=== PATIENT | female | born 1980 | race Caucasian/White ===

== ENCOUNTER 2019-10-27 00:06 | Day surgery (SDC) | payer OTHER, SELFPAY ==
[2019-10-19 12:20] VITALS: BMI 19.9
--- NOTE | 2019-10-26 11:35 | WPDANESEPPF ---
Anes - Initial Pre Proc Eval Procedure: Operation Date: 10/27/19 07:30 Proposed Procedures p Bilateral Augmentation Mammoplasty - Rayshawn Magana MD Date/Time: 10/26/19 11:35 Surgeon: Rayshawn Magana MD Pre Op Diagnosis: Micromastia Patient Data Age: 39 Gender: F Height: 5 ft 9 in Weight: 61.24 kg Allergies Allergy/AdvReac Type Severity Reaction Status Date / Time [id number] Antimigraine AdvReac Unknown INSTRUCTED Verified 10/27/19 06:29 Agents TO AVOID D/T HEMIPLEGIC MIGRAINES BETA BLOCKERS AdvReac INSTRUCTED Uncoded 10/27/19 06:29 TO AVOID D/T HEMIPLEGIC MIGRAINES Home Medications Medication Instructions Recorded Confirmed Type levothyroxine 75 mcg tablet 75 mcg PO DAILY 08/10/19 10/27/19 History carisoprodol 350 mg tablet 350 mg PO TID PRN #21 tablet 10/04/19 10/27/19 Rx docusate sodium 100 mg capsule 100 mg PO DAILY #14 cap 10/04/19 10/27/19 Rx ondansetron HCl 4 mg tablet 4 mg PO Q8H #28 tablet 10/04/19 10/27/19 Rx oxycodone-acetaminophen 5 mg-325 1 tablet PO Q6H PRN #15 tablet 10/04/19 10/27/19 Rx mg tablet Patient hx anesthesia problems: none Family hx anesthesia problems: none PMFSH Past Medical History Medical History (Updated 10/26/19 @ 11:35 by Morgan Esposito MD) GERD (gastroesophageal reflux disease) Hemiplegic migraine Hypothyroidism Surgical History Surgical History History of D&C History of wisdom tooth extraction Social History Social History Smoking status: Never smoker Alcohol intake: current Anes - Eval Final PreProcedure Day of Procedure 10/26/19 11:35 Patient weight: normal Heart: regular rate and rhythm Lungs: clear to auscultation Airway: Mallampati scale class II Neurological: alert and oriented Last oral intake: >/= 8 hours ASA classification: II Emergent: no Anesthetic plan: proceed Anesthesia type and monitoring: general LMA and standard monitoring Informed Consent: The patient's anesthetic plan and its attendant risks and benefits were discussed with the patient/family/POA. Questions were solicited and answers provided to the satisfaction of the patient/family/POA.
[2019-10-27] VITALS (7 sets, daily range): BP systolic 96–107; BP diastolic 53–73; PULSE 49–81; RESP 12–16; TEMP 36.4–36.8; O2SAT 100
[2019-10-27] MEDS: LACTATED RINGERS 1,000 ML 30 ML IV CONT ×2 (06:25→08:44)
--- NOTE | 2019-10-27 06:46 | WPDHPUPDATE1 ---
History and Physical Update Update Date/Time: 10/27/19 06:46 History and Physical has been reviewed, including an updated exam of the patient. There are NO changes in the patient's condition. Risks, benefits, and alternatives have been discussed and questions answered. Patient agrees to proceed with procedure.
[2019-10-27] MEDS: ceFAZolin 2 GM/D5W 50 ML 2 GM/50 ML BAG IVPB (07:37)
[2019-10-27] MEDS: LIDO 1%/EPINEPHRINE 1:100,000 20 ML VIAL 30 ML INFILTRATE (08:01)
--- NOTE | 2019-10-27 08:39 | SUR.OPER ---
Ebl=5ml
--- NOTE | 2019-10-27 08:48 | P.OP_ITS ---
Procedure Note - Detailed Date of procedure: 10/27/19 Pre-op diagnosis: Micromastia Post-op diagnosis: same Procedure performed: Bilateral breast augmentation Description of procedure: Breast Augmentation risks benefits discussed including risks of infection, bleeding, scarring, hematoma, seroma, wound breakdown. Implant malposition (discussed nipple location, asymmetries, implant positioning) asymmetry, change or loss of nipple / areola sensation or complex. Implant rupture. Need for revision procedures. Visible rippling. Unnatural feel and upper pole fullness. Capsular contracture. Changes that can occur with weight gain, loss, or . Difficulties with breast feeding. Thinning of the breast tissue. Need for a breast lift (mastopexy) now or in the future and recurrent ptosis. D/W patient ALCL and rheumatologic diseases. Discussed was effects on screening mammography and possibility of masking breast cancer in certain locations. Risks of anesthesia and that medical complications related to the procedure are at the cost of the patient. This is not a comprehensive list of all risks discussed. All questions were answered today. It was discussed that although silicone implants may have a slightly more natu ral feel the risks from rupture are greater. Described were capsular and extracapsular rupture and what this involves. Further the added surgical difficulty and costs associated with rupture. Finally that if the rupture had substantial spread it can be permanent and uncorrectable with effects regional including lymph nodes, vessels, nerves and other structures leading to pain, weakness, numbness, and other complications. Anesthesia: GLMA Surgeon: Rayshanw Magana MD Estimated blood loss (mL): 5 Drains: No Packing: No Pathology: none sent Complications: No immediate complications Condition: stable Disposition: PACU Findings: Implants: Barry Dallasira SoftTouch Silicone Smooth Right: REF# [id number] Left: REF# [id number]
[2019-10-27] MEDS: ONDANSETRON INJ 4 MG/2 ML VIAL IV PUSH (09:43)
== END 2019-10-27 10:30 | disposition home or self-care (01) ==
PROVIDERS: Visit Provider Surgery Plastic and Reconstructive Surgery
PROC: (CPT 19325; principal; 2019-10-27 07:30)
DX: Z41.1 Encounter for cosmetic surgery (principal); N64.82 Hypoplasia of breast; E03.9 Hypothyroidism, unspecified; K21.9 Gastro-esophageal reflux disease without esophagitis
CPT/HCPCS: 19325; J0131; J0690; J1100; J1580; J2250; J2405; J2704; J3010; J7120